=== PATIENT | female | born 1975 | race Caucasian/White ===

== ENCOUNTER 2020-10-14 19:07 | Emergency (ER) | payer MEDICAID, SELFPAY ==
[2020-10-14 19:08] VITALS: BP 155/96; PULSE 117; RESP 18; TEMP 36.3; O2SAT 98; BMI 36.7
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
[2020-10-14 20:42] VITALS: PULSE 78; RESP 16; TEMP 36.9; O2SAT 97
== END 2020-10-14 20:44 | disposition home or self-care (01) ==
LOC: ED 20:08
PROVIDERS: Emergency Provider Emergency Medicine; PCP Family Medicine
DX: S09.90XA Unspecified injury of head, initial encounter (principal); S29.9XXA Unspecified injury of thorax, initial encounter; S00.432A Contusion of left ear, initial encounter; Y04.2XXA Assault by strike against or bumped into by another person, initial encounter; Y93.9 Activity, unspecified; Y92.89 Other specified places as the place of occurrence of the external cause; Y99.9 Unspecified external cause status; I10 Essential (primary) hypertension
CPT/HCPCS: 70450; 71046; 99284

== ENCOUNTER 2021-01-10 10:53 | Emergency (ER) | payer MEDICAID, SELFPAY ==
[2021-01-10 10:54] VITALS: BP 157/95; PULSE 112; RESP 18; TEMP 36.3; BMI 35.4
--- NOTE | 2021-01-10 11:12 | EX.ED.UPPERE ---
HPI History of Present Illness HPI Narrative: Patient presents with redness and swelling to the medial aspect of her right elbow that began yesterday evening, approximately 15 hours prior to arrival. Patient states there has been some purulent drainage from the area. Patient states that whenever she bends her elbow there is some purulent drainage expressed. Patient denies any pain. Patient states the area is pruritic. Patient denies any paresthesias or weakness. Patient denies any fevers or chills. Chief Complaint: Wound Informant: patient Onset/Context/Timing Onset: Yesterday Context: Gradual Onset Timing: Continuous Location: Right elbow Worsened by: Nothing Relieved by: Nothing Associated Symptoms Associated Symptoms: Negative for Parasthesia, Weakness and Loss of Funtion PFSH [facility] Medical History Hypertension Home Medications metoprolol succinate 1 tablet DAILY 10/14/20 [History Last Taken Unknown] spironolactone 1 tab DAILY PRN 10/14/20 [History Last Taken Unknown] cephalexin 500 mg PO Q6 #40 capsule 01/10/21 [Rx Last Taken Unknown] Allergy/AdvReac Type Severity Reaction Status Date / Time No Known Allergies Allergy Verified 01/10/21 10:54 Surgical History (Updated 01/10/21 @ 11:[address] Fan Howard DO) History of History of reduction mammoplasty History of tympanostomy tube placement Social History Smoking Status: Current every day smoker tobacco type: cigarettes ROS ROS ED Constitutional Constitutional ED: Denies chills or fever(s) Eyes Eyes: Denies blurry vision or change in vision ENT ENT ED: Denies rhinorrhea or sore throat Cardiovascular Cardiovascular: Denies chest pain or palpitations Respiratory/Chest Respiratory/Chest: Denies cough or dyspnea Gastrointestinal Gastrointestinal: Denies nausea or vomiting Genitourinary Genitourinary ED: Denies dysuria or hematuria Musculoskeletal Musculoskeletal: Denies back pain or neck pain Integumentary Reports abscess and rash Neurologic Neurologic: Denies headache(s) or weakness Allergic/Immunologic Allergic/Immunologic ED: Denies mouth swelling or urticaria EXAM Physical Exam Const Vital Signs: 01/10/21 10:54 Temperature 97.3 F L Temperature Source Temporal Pulse Rate 112 H Respiratory Rate 18 Blood Pressure 157/95 H Blood Pressure Mean 115 Positive well nourished and well developed General Appearance ED: well developed HEENT Reports moist mucous membranes Neck full ROM and supple Extremity Extremity Narrative: There is erythema, warmth, and induration over the medial aspect of the right elbow. There is an excoriated area in the middle of this. There is no active discharge or drainage. There is no fluctuance. There is good range of motion of the right elbow. I was unable to express any drainage even with flexion of the elbow. Radial pulses are equal bilaterally. Sensation was intact to light touch in all digits. Capillary refill was less than 2 seconds in all digits. Strength is 5/5 in the radial, median, and ulnar areas. Neuro oriented x3, CN's II-XII intact bilaterally, moves all extremities, no focal motor deficits and no sensory deficits noted Sensorium / Orientation: alert Psych mental status grossly normal MDM MDM MDM Narrative Medical decision making narrative: Patient was given a dose of Keflex here. Patient was given a prescription for Keflex. Patient was instructed to continue using warm compresses to the area. Patient was instructed to take Tylenol or ibuprofen as needed for pain. Patient was instructed to follow-up with her primary care physician in 5 to 7 days. Patient understood and was agreeable with the plan. All questions were answered. Discharge Plan Triage Chief Complaint: Wound ED Provider: Fan Howard Dx/Rx/DC Orders Clinical Impression: Cellulitis of right elbow Instructions: ED Cellulitis Prescriptions: New cephalexin [cephalexin] 500 MG capsule 500 mg PO Q6 Qty: 40 RF: 0 No Action spironolactone 25 MG tablet 1 tab DAILY PRN RF: 0 metoprolol succinate 25 MG tablet 1 tablet DAILY RF: 0 Primary Care Provider: Krunal Liao Referrals: Krunal Liao DO [Primary Care Provider] - 5-7 Days Disposition Disposition: Home, Self Care
[2021-01-10] MEDS: Cephalexin 500 MG Capsule PO (11:35)
== END 2021-01-10 11:37 | disposition home or self-care (01) ==
LOC: ED 11:21
PROVIDERS: Emergency Provider Emergency Medicine; PCP Family Medicine
DX: L03.113 Cellulitis of right upper limb (principal); F17.210 Nicotine dependence, cigarettes, uncomplicated
CPT/HCPCS: 99282

== ENCOUNTER 2021-03-15 12:04 | Day surgery (SDC) | payer MEDICAID, SELFPAY ==
[2021-03-15] VITALS (7 sets, daily range): BP systolic 89–142; BP diastolic 56–94; PULSE 95–107; RESP 16–18; TEMP 36.2–36.8; O2SAT 94–98; BMI 32.8
--- NOTE | 2021-03-15 | POC_PTH ---
PATIENT: CHRISTOPHER GILL LOC: [facility] [place] U#:[id number] AGE/SX: 45/F ROOM: RE03/15/[address]: Dr. Hodan Keene DO : 1975 BED: DIS: 03/15/2021 SPEC #: [id number] RECD: 03/15/21 15:52 STATUS: YASEMIN REKam #: [id number] HANK: 03/15/21 00:[address]: Hodan Keene DEPT: SURGICAL PATHOLOGY RECD BY: Leon Ortiz ENTERED: 03/16/21 12:03 SP TYPE: PROD CONC OTHR DR: Dr. Krunal Liao DO Tissues: Product of conception, NOS Procedures: Surgery Specimen Level IV HEADER OPERATION: Suction dilation and curettage PRE-OP DIAGNOSIS: Missed TISSUE SUBMITTED: Products of conception MICROSCOPIC DIAGNOSIS Products of conception: [place], gestational endometrium, syncytial trophoblastic cells and autolyzed tissue (products of conception). SJ:mili 03/17/2021 COMMENT Case has been reviewed in consultation with Dr. Nugent who concurs with the above diagnosis. IDC:AM MICROSCOPIC DESCRIPTION Slides are reviewed. GROSS DESCRIPTION Received in fixative is one container labeled with the patient's name and designated products of conception. The specimen consists of multiple fragments of zarate mucoid tissue mixed with blood clot that in aggregate measure 4 x 4 x 1 cm. tissue is not identified. The entire specimen is submitted in three cassettes. / BOBBI:mili 03/16/21 TC:5 CPT: 98621
--- NOTE | 2021-03-15 12:59 | PCM.HP.OB ---
HPI - General HPI Narrative CHRISTOPHER GILL, is a 45 F who presents for suction D&C for MAB. Maternal Data Information RAINE Calculator Estimated Delivery Date Method Current WG Current Estimate 08/07/21 LMP (Certain) 19w 2d PFSH PFSH Medical History Alcohol use Anxiety Bite from insect Depression History of edema Hypertension Poor dentition Shortness of breath on exertion Smoker Home Medications metoprolol succinate 1 tablet PO DAILY 10/14/20 [History Last Taken Unknown] spironolactone 1 tab PO DAILY 10/14/20 [History Last Taken Unknown] Allergy/AdvReac Type Severity Reaction Status Date / Time No Known Allergies Allergy Verified 03/12/21 16:02 Surgical History (Updated 03/12/21 @ 16:05 by Tiffanie Edwards) History of History of cholecystectomy History of lithotripsy History of reduction mammoplasty History of tympanostomy tube placement Social History Smoking Status: Current every day smoker tobacco type: cigarettes ROS Constitutional Constitutional: Denies chills or fever(s) Eyes Eyes: Denies blurry vision ENT HEENT: Denies dizziness or headache(s) Cardiovascular Cardiovascular: Denies abdominal pain Gastrointestinal Gastrointestinal: Denies abdominal pain Genitourinary Genitourinary: Denies difficulty urinating or dysuria Musculoskeletal Musculoskeletal: Denies arthralgias Integumentary Integumentary: Denies changing lesions Neurologic Neurologic: Denies dizziness or numbness Endocrine Endocrinology: Denies cold intolerance or heat intolerance Physical Exam Const alert and no apparent distress General Appearance: comfortable HEENT normocephalic Chest inspection of chest normal Chest: symmetrical chest wall rise Resp normal respiratory effort and clear to auscultation bilaterally Cardio regular rate and regular rhythm GI normal to inspection, nondistended, normoactive bowel sounds Extremity normal to inspection Labs Labs Labs: No Data to Display Assessment & Plan (1) Missed : PLAN: Here for scheduled suction D&C. Discussed r/b/a to surgery and questions answered. Patient desires to proceed and consent signed. HCG quant 47.9. Ultrasound shows pole measuring 5.7 mm without cardiac activity and molar could not be excluded.
[2021-03-15] MEDS: Lactated Ringers 1,000 ML 100 ML IV (13:09)
[2021-03-15 13:10] LABS: Hematocrit 42.1 % (37-47); Hemoglobin 14.1 g/dL (12.0-15.0); Mean Corp Hgb Conc 33.5 g/dL (32-36); Mean Corpuscular Hgb 30.1 pg (27.0-32.0); Mean Corpuscular Volume 89.8 fL (81-99); Mean Platelet Vol. 10.2 fl (6.2-12.0); Platelet Count 296 K/mm3 (150-450); RBC Distribution Width CV 14.6 % (11.6-14.6); RBC Distribution Width SD 47.8 fl (35.1-43.9); Red Blood Count 4.69 M/mm3 (4.2-5.4); White Blood Count 12.1 K/mm3 (4.4-11.0)
[2021-03-15] MEDS: Lidocaine 1% /Epi 1:100 (20ml) 20 ML Vial (14:12)
[2021-03-15] MEDS: miSOPROStol 200 MCG Tablet (14:25)
--- NOTE | 2021-03-15 14:29 | OP.PCM_ITS ---
Problems Associated Problem List Diagnoses (1) Missed : Report of Operation Date of Procedure: 03/15/21 Pre-Operative Diagnosis: MAB Post-Operative Diagnosis: MAB Surgery/Procedure Performed:: Suction D&C Description of Surgical Findings:: 6 week sized uterus Surgeon: Jassi blocker and polisher gold wheel: None Type of Anesthesia: MAC Special Medications: None Specimen's removed: Products of conception Drains: None Estimated Blood Loss (mL): < 50 Fluids Replaced: 600 Description of Procedure: Patient was taken to the operating room where MAC ane sthesia was induced and found to be adequate. She was prepped and draped in the dorsal lithotomy position using yellowfin stirrups. Weighted speculum was placed in the vagina and the cervix was exposed. The anterior lip of the cervix was grasped with a single-tooth tenaculum. Cervix was serially dilated to accommodate a size 7 suction curettage. The size 7 suction curettage was passed with removal of tissue. A size 8 suction curettage was then used for several additional passes until no tissue was noted. Bleeding was slightly brisk therefore Cytotec 1000 mcg was placed rectally. Bleeding then minimal so all instruments were removed from the vagina. Instrument sponge count was correct. Vaginal sweep was performed. Patient was taken to recovery in stable condition. Grafts/Implants Used: None Procedure Start Time: 14:09 Procedure Stop Time: 14:25 Complications None Admit VTE Documentation VTE Present on Admission: No VTE Mechan Device Prophylaxis: SCD's
--- NOTE | 2021-03-15 14:29 | PCM.DC ---
Discharge Instructions Follow Up Care Test Results: Test results from this visit will be discussed in further detail at your follow-up appointment, if applicable. Discharge Plan Admission Primary Reason for Your Visit: miscarriage Attending Provider: Hodan Keene Primary Care Provider: Krunal Liao Instructions Patient Instructions: Loss Grieving, Understanding Miscarriage ... Additional Instructions / Restrictions: Nothing in the vagina while having bleeding, for about 1-2 weeks. No tampons, intercourse, hot tubs, tub baths, pools. Discharge Orders/Prescriptions Prescriptions: No Action spironolactone 25 MG tablet 1 tab PO DAILY RF: 0 metoprolol succinate 25 MG tablet 1 tablet PO DAILY RF: 0 Referrals / Follow Up: Krunal Liao DO [Primary Care Provider] - Disposition Disposition (needs filled in before D/C Order can be placed): Home, Self Care
== END 2021-03-15 16:01 | disposition home or self-care (01) ==
LOC: SDC 12:05 → AC 12:06
PROVIDERS: PCP Family Medicine; Referring Provider Obstetrics & Gynecology; Visit Provider Obstetrics & Gynecology
PROC: (CPT 59820; principal; 2021-03-15 13:30)
DX: O02.1 Missed abortion (principal); F17.210 Nicotine dependence, cigarettes, uncomplicated; O99.332 Smoking (tobacco) complicating pregnancy, second trimester; Z3A.19 19 weeks gestation of pregnancy
CPT/HCPCS: 01965; 59820; 85027; 86850; 86900; 86901; 88305; J7120

== ENCOUNTER 2022-01-24 12:31 | Emergency (ER) | payer MEDICAID, SELFPAY ==
[2022-01-24 12:32] VITALS: BP 123/79; PULSE 117; RESP 16; TEMP 36.3; O2SAT 98; BMI 33.6
--- NOTE | 2022-01-24 13:06 | EDS_ITS ---
HPI History of Present Illness Chief Complaint: Dental Informant: patient Narrative Narrative: Patient is a 46-year-old female presenting with dental pain and right-sided facial swelling. Patient states that she has had dental issues and infection for the past 2 weeks with intermittent pain on the left face. She is is not currently on any medications. She has a dentist appointment in 2 days. This morning she woke up with increased pain and swelling now on the right side of her face. She felt like there is an abscess that was forming so she came to the emergency room. She denies any difficulty speaking. Denies any voice changes but does feel like she is having a harder time pronouncing her words. Denies any drooling. Denies any difficulty swallowing. States she has bad teeth and just needs them all pulled. Denies any fever or chills. No other complaints at this time. Denies any significant pain at this time. [facility] Medical History Alcohol use Anxiety Bite from insect Depression History of edema Hypertension Poor dentition Shortness of breath on exertion Smoker Home Medications metoprolol succinate 25 mg tablet,extended release 24 hr 1 tablet PO DAILY BP 10/14/20 [History Last Taken Unknown] spironolactone 25 mg tablet 1 tab PO DAILY 10/14/20 [History Last Taken Unknown] amoxicillin 875 mg-potassium clavulanate 125 mg tablet 1 tab PO BID #20 tabs 01/24/22 [Rx Last Taken Unknown] Allergy/AdvReac Type Severity Reaction Status Date / Time No Known Allergies Allergy Verified 01/24/22 12:32 Surgical History History of History of cholecystectomy History of lithotripsy History of reduction mammoplasty History of tympanostomy tube placement Social History Smoking Status: Current every day smoker tobacco type: cigarettes ROS ROS ED Constitutional Constitutional ED: Denies chills, fever(s) or sweats Eyes Eyes: Denies blurry vision ENT ENT ED: Reports other Details: dental pain, right sided jaw swelling ; Denies rhinorrhea or sore throat Cardiovascular Cardiovascular: Denies chest pain or palpitations Respiratory/Chest Respiratory/Chest: Denies cough or dyspnea Gastrointestinal Gastrointestinal: Denies abdominal pain, nausea or vomiting Genitourinary Genitourinary ED: Denies dysuria Musculoskeletal Musculoskeletal: Denies arthralgias or myalgias Integumentary Denies abscess or rash Neurologic Neurologic: Denies headache(s) or weakness Psychiatric Psychiatric: Denies anxiety Hematologic/Lymphatic Hematologic/Lymphatic: Denies easy bleeding or easy bruising EXAM Physical Exam Const Vital Signs: 01/24/22 12:32 Temperature 97.4 F L Temperature Source Temporal Pulse Rate 117 H Respiratory Rate 16 Blood Pressure 123/79 H Blood Pressure Mean 93 Pulse Ox 98 Oxygen Delivery Method Room Air Positive well nourished, well developed and obese General Appearance ED: well developed and NAD Nutritional Appearance: obese HEENT HEENT Narrative: Patient has multiple missing teeth as well as multiple cracked teeth. No obvious abscess appreciated. The sublingual mucosa is soft. The submental space is soft with no associated erythema. There is some swelling and tenderness of the right mandibular area with no overlying erythema or drainage appreciated. Negative for trauma or tenderness Face and Sinus: Negative for sinuses nontender Mouth ED: Yes tongue normal and Yes oral and palatal mucosa abnormal Mouth: tongue normal and oral and palatal mucosa abnormal Teeth and Gingiva: caries and poor dentition Throat: posterior oropharynx normal Eyes PERRL and EOMs intact bilaterally Neck supple and no JVD General: submandibular swelling; Negative for anterior neck swelling Chest Wall inspection of chest normal and palpation of chest normal Resp normal respiratory effort and clear to auscultation bilaterally Cardio regular rhythm Rate: tachycardic GI normal to inspection, nondistended, normoactive bowel sounds and non-tender Neuro oriented x3 and moves all extremities Motor Exam: Negative for general weakness Psych mental status grossly normal Skin no rashes or lesions noted and no wounds MDM MDM MDM Narrative Medical decision making narrative: Patient is evaluated for right-sided lower jaw swelling and discomfort. Presentation is concerning for dental infection. Patient has very poor dent ition with multiple cracked teeth as well as multiple missing teeth. No physical exam findings concerning for deep space abscess or Zion's angina. Patient started on antibiotics. She has follow-up with dentist in 2 days. She is given return precautions. She will continue to alternate ibuprofen and Tylenol. She did she feel slightly improved currently. There is nothing amenable to drainage at this time. Patient discharged home in stable condition. Encouraged to continue to alternate ibuprofen and Tylenol. Discharge Plan Triage Chief Complaint: Dental ED Provider: Elizabeth Winters Dx/Rx/DC Orders Clinical Impression: Abscess, dental, Mandibular swelling Instructions: ED Dental Abscess Prescriptions: New amoxicillin-pot clavulanate 875-125 mg tablet 1 tab PO BID Qty: 20 0RF No Action spironolactone 25 MG tablet 1 tab PO DAILY Label Comments: pt states she has not been taking BP Meds metoprolol succinate 25 MG tablet 1 tablet PO DAILY Label Comments: pt states she has not been taking BP Meds Primary Care Provider: Krunal Liao Referrals: Krunal Liao DO [Primary Care Provider] - Activity Restrictions/Additional Instructions: Alternate ibuprofen and Tylenol. Please follow-up with your dentist on Monday as scheduled. Return if you have worsening symptoms or have a hard time swallowing. Disposition Disposition: Home, Self Care
[2022-01-24] MEDS: Amox/Clavulanate 875 MG Tablet PO (13:44)
== END 2022-01-24 13:47 | disposition home or self-care (01) ==
PROVIDERS: Emergency Provider Emergency Medicine; PCP Family Medicine; Visit Provider Emergency Medicine
DX: K04.7 Periapical abscess without sinus (principal); R22.0 Localized swelling, mass and lump, head; F17.210 Nicotine dependence, cigarettes, uncomplicated; I10 Essential (primary) hypertension
CPT/HCPCS: 99283

== ENCOUNTER 2022-02-21 11:40 | Emergency (ER) | payer MEDICAID, SELFPAY ==
[2022-02-21 11:41] VITALS: BP 124/83; PULSE 111; RESP 18; TEMP 36.4; O2SAT 97; BMI 31.3
--- NOTE | 2022-02-21 12:09 | US_ITS ---
STUDY: FIRST TRIMESTER OBSTETRICAL ULTRASOUND REASON FOR EXAM: Female, 46 years old bleeding W/ -- [id number] -- PATIENT HAD SPOTTING ONCE THIS MORNING AND CRAMPING 3 TIMES LMP: 01/01/2022 TECHNIQUE: Transvaginal TECHNICAL QUALITY: Adequate. PRIOR ULTRASOUND: None. FINDINGS: There is visualization of a single gestational sac in a normal intrauterine position. The mean sac diameter (MSD) measures , indicating an estimated gestational age (EGA) of weeks, days. The gestational sac shape is within normal limits. Small adjacent hypoechoic area consistent with small subchorionic hemorrhage versus implantation bleed). There is a visualized yolk sac. The yolk sac measures 4 mm. The placenta is non-visualized. There is visualization of a live embryo. The crown-rump length (CRL) measures 4 mm, indicating an estimated gestational age (EGA) of 6 weeks, 2 days. There is demonstrated cardiac activity with a heart rate of 82 bpm. The estimated gestation age (EGA) by LMP is 7 weeks, 2 days. The estimated date of delivery (RAINE) by LMP is 10/08/2022. The estimated gestation age (EGA) by US is 6 weeks, 2 days. The estimated date of delivery (RAINE) by US is 10/15/2022. The uterus measures 8.8 x 5.3 x 5.1 cm. There is no demonstrated uterine fibroid. The cervix is closed. The right ovary measures 4.1 x 3.3 x 1.7. There is no right ovarian cyst. There is no visualized right adnexal mass or complex lesion. The left ovary measures 2.4 x 1.8 x 1.2. There is no left ovarian cyst. There is no visualized left adnexal mass or complex lesion. There is no fluid in the cul de sac. US/Transvaginal w/Preg US IMPRESSION: Living intrauterine of 6 weeks 2 days as described above. bradycardia with a heart rate of 82 bpm. Electronically Signed: Fortino Toribio MD at 14:55 EDT ,
--- NOTE | 2022-02-21 12:10 | EDS_ITS ---
HPI HPI - Female History of Present Illness Chief Complaint: Vag Bld, Preg Informant: patient Associated Symptoms P: 2 Ab: 4 Narrative Narrative: Patient present secondary to spotting and cramping this morning. She is approximately 7 weeks . 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 She had her hCG quant checked 3 times last week. She states it is going up but not doubling like it normally would. She was scheduled for an ultrasound tomorrow morning. When she started spotting and cramping this morning she came to the emergency room. On review of records patient has blood type B+. PFSH PFS Medical History Alcohol use Anxiety Depression History of edema History of kidney stones Hypertension Poor dentition Shortness of breath on exertion Smoker Home Medications metoprolol succinate 25 mg tablet,extended release 24 hr 1 tablet PO DAILY BP 10/14/20 [History Last Taken Unknown] spironolactone 25 mg tablet 1 tab PO DAILY 10/14/20 [History Last Taken Unknown] amoxicillin 875 mg-potassium clavulanate 125 mg tablet 1 tab PO BID #20 tabs 01/24/22 [Rx Last Taken Unknown] Allergy/AdvReac Type Severity Reaction Status Date / Time No Known Allergies Allergy Verified 01/24/22 12:32 Surgical History History of History of cholecystectomy History of lithotripsy History of reduction mammoplasty History of tympanostomy tube placement Social History Smoking Status: Light Smoker (<10/day) ROS ROS ED Constitutional Constitutional ED: Denies chills or fever(s) Eyes Eyes: Denies change in vision or discharge from eye(s) ENT ENT ED: Denies discharge from eye(s), rhinorrhea or sore throat Cardiovascular Cardiovascular: Denies chest pain or palpitations Respiratory/Chest Respiratory/Chest: Denies cough or dyspnea Gastrointestinal Gastrointestinal: Reports abdominal pain; Denies diarrhea, nausea or vomiting Genitourinary Genitourinary ED: Denies difficulty urinating or dysuria Musculoskeletal Musculoskeletal: Denies back pain or extremity pain Integumentary Denies Abrasions or rash Neurologic Neurologic: Denies headache(s) or weakness Allergic/Immunologic Allergic/Immunologic ED: Denies lip swelling or urticaria EXAM Physical Exam Const Vital Signs: 02/21/22 11:41 02/21/22 14:42 Temperature 97.6 F L Temperature Source Temporal Pulse Rate 111 H 84 Respiratory Rate 18 18 Blood Pressure 124/83 H 117/67 Blood Pressure Mean 96 83 Pulse Ox 97 96 Oxygen Delivery Method Room Air Room Air Positive well nourished and well developed General Appearance ED: well developed HEENT Reports normocephalic and head/scalp atraumatic Eyes PERRL and EOMs intact bilaterally Neck supple Chest Wall inspection of chest normal and palpation of chest normal Resp normal respiratory effort and clear to auscultation bilaterally Cardio regular rate and regular rhythm GI normal to inspection, nondistended, normoactive bowel sounds Palpation: soft Back/Spine no CVA tenderness Extremity normal to inspection Neuro oriented x3 and no sensory deficits noted Sensorium / Orientation: alert Motor Exam: strength 5/5 throughout Psych mental status grossly normal Skin no rashes or lesions noted MDM MDM MDM Narrative Medical decision making narrative: Quant obtained today. Pelvic ultrasound ordered. Lab Data Labs: Laboratory Results - last 24 hr 02/21/22 12:20 HCG, Quant [id number] H Radiography Diagnostic Testing: Clinical Impression(s) from Imaging Studies Obstetrics Ultrasound 02/21/22 12:09 IMPRESSION: Living intrauterine of 6 weeks 2 days as described above. bradycardia with a heart rate of 82 bpm. Electronically Signed: Fortino Toribio MD at 14:55 EDT , Treatment and Re-Evaluation Narrative: Quant returns [id number]. On review of records her quant on the was [id number]. Pelvic ultrasound reveals living intrauterine at 6 weeks and 2 days. bradycardia is noted at 82 bpm. I spoke with Kortney Tuttle, flight operation coordinator on- call for [facility]. She will put in an order to have the patient have a repeat quant done on Monday. They would also like to see the patient in the office. This is all been relayed to the patient she voices understanding and agreement. Discharge Plan Triage Chief Complaint: Vag Bld, Preg ED Provider: Lizeth Goldstein Dx/Rx/DC Orders Clinical Impression: Miscarriage, threatened, early Instructions: ED Possible Miscarriage ... Prescriptions: No Action spironolactone 25 MG tablet 1 tab PO DAILY Label Comments: pt states she has not been taking BP Meds metoprolol succinate 25 MG tablet 1 tablet PO DAILY Label Comments: pt states she has not been taking BP Meds amoxicillin-pot clavulanate 875-125 mg tablet 1 tab PO BID Qty: 20 0RF Primary Care Provider: Krunal Liao Referrals: Krunal Liao DO [Primary Care Provider] - Ajit Whipple MD [Med Staff - Active Staff] - As soon as possible Activity Restrictions/Additional Instructions: Please follow-up with [facility] in 2 days for repeat blood work. They would like to see you in the office this week. Disposition Disposition: Home, Self Care
[2022-02-21 13:11] LABS: hCG Titer Quant., Serum 8262 mIU/mL (1-3)
[2022-02-21 14:42] VITALS: BP 117/67; PULSE 84; RESP 18; O2SAT 96
[2022-02-21 15:59] VITALS: BP 117/72; PULSE 111; RESP 18; O2SAT 97
== END 2022-02-21 16:04 | disposition home or self-care (01) ==
PROVIDERS: Emergency Provider Emergency Medicine; PCP Family Medicine; Visit Provider Emergency Medicine
DX: O20.0 Threatened abortion (principal); F17.200 Nicotine dependence, unspecified, uncomplicated; O99.331 Smoking (tobacco) complicating pregnancy, first trimester; Z3A.01 Less than 8 weeks gestation of pregnancy; O26.21 Pregnancy care for patient with recurrent pregnancy loss, first trimester
CPT/HCPCS: 76817; 84702; 99283; A4216

== ENCOUNTER 2022-03-04 05:44 | Day surgery (SDC) | payer MEDICAID, SELFPAY ==
--- NOTE | 2022-03-03 16:05 | PCM.HP.BLA ---
History and Physical Date of Admission: 03/03/22 HPI: The patient is a 46 year old female presenting for pre-operative visit. She is scheduled for Suction D&C and IUD insertion, for missed and IUD insertion on 03/04/22. Procedure discussed along with risks, benefits and complications. Other alternatives discussed for management. Consent form signed? Yes. ? ? PAST MEDICAL HISTORY PAST MEDICAL HISTORY Diagnosis Date ? Abnormal Pap smear of cervix ? ? +HPV as teenager ? Anemia ? ? Cellulitis 01/10/2021 ? elbow ? Depression ? ? Depression/anxiety ? Essential hypertension ? ? Kidney stone 2015 ? depression ? ? Tobacco use disorder ? ? ? PAST SURGICAL HISTORY PAST SURGICAL HISTORY Procedure Laterality Date ? BREAST REDUCTION ? ? ? SECTION HX ? ? ? X2 ? D&C, DIAG AND/OR THERAPEUTIC ? ? ? F LITHOTRIPSY ? ? ? MYRINGOTOMY ? CURRENT MEDICATIONS Current Outpatient Medications Medication Sig Dispense Refill ? meloxicam (MOBIC) 15 mg tablet Take 1 tablet by mouth once daily. 30 tablet 1 ? Nglgkqny-Co-Aff-Fe-FA ( VITAMIN) tab Take 1 tablet by mouth. ? ? ? No current facility-administered medications for this visit. ? ? ALLERGIES: Patient has no known allergies. ? PERSONAL HISTORY: SOCIAL HISTORY Social History ? Tobacco Use ? Smoking status: Every Day ? ? Years: 25.00 ? ? Types: Cigarettes ? Smokeless tobacco: Never ? Tobacco comments: ? ? 4 cigarettes a day Vaping Use ? Vaping Use: current everyday user ? Quit date: 01/08/2021 Substance Use Topics ? Alcohol use: Not Currently ? ? Comment: 1/2 can high alcohol beverage a day ? Drug use: Not Currently ? ? Comment: took percoset x 1 year 8 years ago ? FAMILY HISTORY: FAMILY HISTORY FAMILY HISTORY Problem Relation Age of Onset ? Anxiety disorder Mother ? ? Hypertension Mother ? ? Anxiety disorder Father ? ? Cancer Father ? ? Depression Father ? ? No Known Problems Sister ? ? No Known Problems Sister ? ? No Known Problems Sister ? ? Dementia Maternal Grandmother ? ? Lung Cancer Maternal Grandfather ? ? No Known Problems Paternal Grandmother ? ? No Known Problems Paternal Grandfather ? ? No Known Problems Son ? ? No Known Problems Son ? ? ? REVIEW OF SYMPTOMS: GENERAL: denies fevers or chills ENDOCRINOLOGY: has not been on steroids Cardiology : denies palpitations or chest pain Respiratory: denies SOB or cough Hematology: denies history of prolonged bleeding or easy bruising or VTE Allergy: Denies history of personal or family history of allergy to anesthesia ? PHYSICAL EXAMINATION: ? VITALS: Last menstrual period 01/03/2022, unknown if currently . ? GENERAL: The patient is well nourished, well hydrated in no acute distress. , The patient is oriented to time, place, and person. NECK: Supple. No lynphadenopathy, normal thyroid, no thyromegaly. LUNGS: Clear to auscultation bilaterally. no wheezes, rhonchi or rales HEART: Regular rate and rhythm, Normal heart sounds, and No murmurs or gallops GENITALIA: Normal external genitalia, Urethral meatus normal, Bladder nontender, normal vagina and normal vaginal tone, normal cervix, normal uterus, size and consistency, normal adnexa without masses or tenderness, and perineum WNL TVUS shows IUP, irreg sac. Embryonic pole of 63 mm that has not grown in 1 week and now has no cardiac activity ? IMPRESSION: LMP 01/03 22, approxl 9 weeks, w/ 6 week sized missed ab and desires IUD for contracepton ? PLAN: The risks/benefits/alternatives and personal involved for the planned Suction D&C and progestin IUD insertion were reviewed with the patient. Her questions were answered to her satisfaction and she desires to proceed. Consent was signed. I reviewed with her postop instructions and expectations. ? ? I have reviewed and updated past medical and surgical history, medications and allergies Assessment & Plan Assessment/Plan (1) 9 weeks gestation of : (2) Missed : (3) Encounter for IUD insertion:
[2022-03-04] VITALS (7 sets, daily range): BP systolic 88–115; BP diastolic 59–84; PULSE 92–99; RESP 16–18; TEMP 37–37.2; O2SAT 91–100; BMI 34.7
[2022-03-04] MEDS: Lactated Ringers 1,000 ML 15 ML IV (06:34)
[2022-03-04 06:35] LABS: Hematocrit 39.2 % (37-47); Hemoglobin 12.8 g/dL (12.0-15.0); Mean Corp Hgb Conc 32.7 g/dL (32-36); Mean Corpuscular Hgb 29.6 pg (27.0-32.0); Mean Corpuscular Volume 90.7 fL (81-99); Mean Platelet Vol. 9.6 fl (6.2-12.0); Platelet Count 318 K/mm3 (150-450); RBC Distribution Width CV 14.4 % (11.6-14.6); RBC Distribution Width SD 48.3 fl (35.1-43.9); Red Blood Count 4.32 M/mm3 (4.2-5.4); White Blood Count 10.4 K/mm3 (4.4-11.0)
[2022-03-04] MEDS: Acetaminophen 500 MG Tablet 1000 MG PO (06:35)
[2022-03-04] MEDS: Celecoxib 200 MG Capsule 400 MG PO (06:35)
[2022-03-04] MEDS: Doxycycline 100 MG CAPSULE 200 MG PO (06:35)
--- NOTE | 2022-03-04 07:15 | POC_PTH ---
PATIENT: CHRISTOPHER GILL LOC: [facility] [place] U#:[id number] AGE/SX: 46/F ROOM: RE03/04/[address]: Dr. Joanna Fernández MD : 1975 BED: DIS: 03/04/2022 SPEC #: [id number] RECD: 03/04/22 12:22 STATUS: YASEMIN PAINTERKam #: [id number] HANK: 03/04/22 07:[address]: Joanna Fernándze DEPT: SURGICAL PATHOLOGY RECD BY: Araceli Mayberry ENTERED: 03/04/22 12:50 SP TYPE: PROD CONC OTHR DR: Dr. Krunal Liao, Tissues: Product of conception, NOS Procedures: Surgery Specimen Level IV HEADER OPERATION: Dilation and curettage, suction, Mirena IUD insertion PRE-OP DIAGNOSIS: Missed , desire for IUD insertion TISSUE SUBMITTED: Products of conception MICROSCOPIC DIAGNOSIS Products of conception: Decidua, gestational endometrium and immature chorionic villi (products of conception) clinically missed . BOBBI:mili 03/08/2022 COMMENT Please make reference to previous specimen ([id number]) products of conception with diagnosis of ?decidua, gestational endometrium, syncytial trophoblastic cells and autolyzed tissue (products of conception).? MICROSCOPIC DESCRIPTION Slides are reviewed. GROSS DESCRIPTION Received in fixative is one container labeled with the patient's name and designated products of conception. The specimen consists of multiple irregular fragments of pink soft tissue that in aggregate measure 5.5 x 4 x 1 cm. No tissue is identified. Cottage Attendant tissue is submitted in three cassettes. / BOBBI:mili 03/04/2022 TC:5 CPT: 89402
--- NOTE | 2022-03-04 07:16 | DCINST_ITS ---
Discharge Instructions Diet Discharge Diet: No restrictions Activity May resume sexual activity in: 2 weeks Lifting Restrictions: none Dressing / Incision Call your doctor if your incision/area has: Sudden Increased Bleeding and Foul Smelling Discharge Call your doctor if you observe: Fever of 101 or Higher and Using more than 1 pad per hour (for 2 hrs in a row) Follow Up Care Please Follow Up With: Joanna Fernández MD When: 2-4 weeks or as needed. Call [phone] to make an appointment or with any concerns. Test Results: Test results from this visit will be discussed in further detail at your follow- up appointment, if applicable. Discharge Plan Admission Primary Reason for Your Visit: D&C and IUD insertion Attending Provider: Joanna Fernández Primary Care Provider: Krunal Liao Discharge Orders/Prescriptions Prescriptions: Continued meloxicam 15 mg tablet 15 mg PO DAILY Label Comments: TAKE 1 TABLET BY MOUTH ONCE DAILY PNV comb no.58-iron bisgly-FA 10-400 mg-mcg Capsule 1 cap PO DAILY Referrals / Follow Up: Krunal Liao DO [Primary Care Provider] - Disposition Disposition (needs filled in before D/C Order can be placed): Home, Self Care
[2022-03-04] MEDS: Lidocaine 1% (20 ml mdv) 20 ML Vial (07:17)
--- NOTE | 2022-03-04 07:17 | OP.PCM_ITS ---
Problems Associated Problem List Diagnoses (1) Encounter for IUD insertion: (2) 9 weeks gestation of : (3) Missed : Report of Operation Date of Procedure: 03/04/22 Pre-Operative Diagnosis: Missed spontaneous , IUD insertion Post-Operative Diagnosis: same Surgery/Procedure Performed:: SUction D&C and Lilletta IUD insertion Description of Surgical Findings:: normal cervix and vagina Surgeon: Joanna Fernández semiconductor wafers etcher stripper: Janessa liao Type of Anesthesia: MAC/Supplemental/Local Anesthesiologist: James Street Special Medications: none Specimen's removed: products of conception Drains: none Estimated Blood Loss (mL): 10 Fluids Replaced: 500 Description of Procedure: The patient was taken to the operating room where she was prepped and draped in a dorsolithotomy position. A bimanual examination was done and confirmed the uterus to be 7 weeks size and anteverted. A weighted speculum was placed in the vagina and the anterior lip of the cervix was grasped with a single-tooth tenaculum. The cervix was dilated serially. A 8 mm suction curette was placed to the uterine fundus and the suction was created. Several passes were made to remove clots and products of conception. When minimal tissue was returning a gentle sharp curettage was then done of the uterine cavity. The uterine cry was appreciated and another gentle pass was made with the suction curette. At this point there is no active bleeding from the uterus and minimal blood and no further products of conception were removed. The Liletta IUD was then inserted in the usual sterile fashion without difficulty and the strings cut to 2 cm. The instruments removed from the cervix and the cervix was observed and no active bleeding was identified. The tenaculum was removed off the cervix and hemostasis of the tenaculum site was assured. Made of the instruments removed from the vagina and the vaginal sweep was completed by me. Sponge and needle counts were correct. The patient was taken to the recovery room in stable condition. Findings: 7 week size uterus, normal cervix and vagina. Specimen: Products of conception Grafts/Implants Used: none Procedure Start Time: 07:27 Procedure Stop Time: 07:33 Complications none Admit VTE Documentation VTE Present on Admission: No VTE Mechan Device Prophylaxis: SCD's VTE Pharm Prophylaxis ordered?: No Reason prophylaxis not ordered:: Procedure Not Indicated
[2022-03-04] MEDS: Levonorgestrel IUD (Liletta) 1 EACH INTRA-UTER (07:33)
--- NOTE | 2022-03-04 08:19 | SUR.PHASEII ---
THE PATIENT AND /OR DID NOT GET TO TALK TO DR. ARREGUIN YET. THIS NURSE CALLED BACK TO OR AND SPOKE TO CHRIS WHO INFORMED THIS NURSE THAT SHE HAD TO GO TO A DELIVERY. PATIENT SAID SHE DIDN'T HAVE SPECIFIC QUESTIONS AND COULD BE DISCHARGED PRIOR TO SPEAKING TO HER. I TOLD THE PATIENT TO GIVE IT LIKE 20 MINUTES AND SEE IF SHE COMES BACK AND THEN WE CAN REEVALUATE.
== END 2022-03-04 08:30 | disposition home or self-care (01) ==
LOC: SDC 05:46 → AC 05:47
PROVIDERS: PCP Family Medicine; Referring Provider Obstetrics & Gynecology; Visit Provider Obstetrics & Gynecology
PROC: (CPT 58300; principal; 2022-03-04 07:00)
DX: Z30.430 Encounter for insertion of intrauterine contraceptive device (principal); O02.1 Missed abortion; F17.210 Nicotine dependence, cigarettes, uncomplicated; Z3A.01 Less than 8 weeks gestation of pregnancy; O99.331 Smoking (tobacco) complicating pregnancy, first trimester; O34.219 Maternal care for unspecified type scar from previous cesarean delivery
CPT/HCPCS: 58300; 59820; 01965; 85027; 86850; 86900; 86901; 88305; J7120; J2405